=== PATIENT | female | born 1985 | race Caucasian/White ===

== ENCOUNTER 2023-02-22 15:55 | Emergency (ER) | payer MEDICAID ==
[~2023-02-22] VITALS: Ht 172.7 cm; Wt 75.0 kg
[2023-02-22] MEDS ORDERED: AMOX/K CLAV875 M1 PO (16:35)
[2023-02-22 16:48] VITALS: BP 137/93
== END 2023-02-22 16:53 | disposition home or self-care (01) ==
LOC: ED 15:55
DX: K08.89 Other specified disorders of teeth and supporting structures (principal); E66.9 Obesity, unspecified